=== PATIENT | male | born 1965 | race African-American/Black ===

== ENCOUNTER 2021-11-10 15:25 | Inpatient (IN) | payer OTHER ==
[2021-11-10] MEDS ORDERED: IBUPROFEN 400 MG TABLET (FP) PO PRN (18:02)
[2021-11-10] MEDS ORDERED: METHOCARBAMOL 500 MG TABLET PO PRN (18:02)
[2021-11-10] MEDS ORDERED: MAGNESIUM CITRATE 300 ML BOTTLE PO PRN (18:02)
[2021-11-10] MEDS ORDERED: MENTHOL/PHENOL 1 EACH UD MM PRN (18:02)
[2021-11-10] MEDS ORDERED: NICOTINE 10 MG CARTRIDGE (INHALER) IH PRN (18:02)
[2021-11-10] MEDS ORDERED: MAG HYDROX/AL HYDROX/SIMETH 30 ML UNIT-DOSE CUP PO PRN (18:02)
[2021-11-10] MEDS ORDERED: BISMUTH SUBSALICYLATE 524 MG/30 ML PO PRN (18:02)
[2021-11-10] MEDS ORDERED: MAGNESIUM HYDROX 2400MG/30ML ORAL SUSPENSION 30 ML CUP PO PRN (18:02)
[2021-11-10] MEDS ORDERED: ACETAMINOPHEN 325 MG TABLET (FP) PO PRN ×2 (18:02)
[2021-11-10] MEDS ORDERED: ONDANSETRON *ODT* 4 MG TABLET SL PRN (18:02)
[2021-11-10] MEDS ORDERED: chlordiazePOXIDE HCL 25 MG CAPSULE PO PRN (18:02)
[2021-11-10] MEDS ORDERED: ALBUTEROL SO4 HFA INHALER IH PRN (18:15)
[2021-11-10 20:11] VITALS: BMI 39.1
[2021-11-10] MEDS: hydrOXYzine PAMOATE 25 MG CAPSULE (FP) PO SCH (21:42)
[2021-11-10] MEDS: MELATONIN 5 MG TABLETS PO SCH (21:43)
[2021-11-10] MEDS: THIAMINE HCL 100 MG TABLET (FP) PO SCH (21:44)
[2021-11-10] MEDS: chlordiazePOXIDE HCL 25 MG CAPSULE PO SCH (22:14)
[2021-11-11] MEDS: chlordiazePOXIDE HCL 25 MG CAPSULE PO SCH ×4 (06:27→22:22)
[2021-11-11] MEDS: hydrOXYzine PAMOATE 25 MG CAPSULE (FP) PO SCH ×5 (06:28→22:21)
[2021-11-11 10:20] LABS: HEMATOCRIT 43.8 % (35.4-49); MCH 29.2 pg (25.7-33.7); MCHC 31.9 g/dl (32.0-35.9); MEAN CELL VOLUME 91.4 fl (80-96); MEAN PLT VOLUME 8.7 fl (7.5-11.1); PLATELET COUNT 215 10^3/uL (134-434); RBC 4.79 M/mm3 (4.00-5.60); RDW 13.4 % (11.9-15.9); WHITE BLOOD COUNT 9.1 K/mm3 (4.0-10.0)
[2021-11-11 10:23] LABS: CALCIUM 8.6 mg/dL (8.5-10.1)
[2021-11-11 10:24] LABS: ALBUMIN 3.1 g/dl (3.4-5.0); BLOOD UREA NITROGEN 14.2 mg/dL (7-18)
[2021-11-11 10:27] LABS: CREATININE 1.1 mg/dL (0.55-1.3)
[2021-11-11 10:29] LABS: TOT PROT 6.4 g/dl (6.4-8.2)
[2021-11-11 10:33] LABS: BILIRUBIN,TOTAL 0.9 mg/dL (0.2-1)
[2021-11-11] MEDS: PRENATAL VITAMINS W/ FOLIC ACID TABLET (FP) PO SCH (11:23)
[2021-11-11] MEDS: THIAMINE HCL 100 MG TABLET (FP) PO SCH (22:21)
[2021-11-11] MEDS: MELATONIN 5 MG TABLETS PO SCH (22:21)
[2021-11-12] MEDS: chlordiazePOXIDE HCL 25 MG CAPSULE PO SCH ×2 (07:23→10:51)
[2021-11-12] MEDS: hydrOXYzine PAMOATE 25 MG CAPSULE (FP) PO SCH ×3 (07:23→15:26)
[2021-11-12] MEDS: PRENATAL VITAMINS W/ FOLIC ACID TABLET (FP) PO SCH (10:51)
[2021-11-12 12:59] VITALS: BP 124/90; PULSE 92; TEMP 97.1
[2021-11-13] MEDS ORDERED: chlordiazePOXIDE HCL 10 MG CAPSULE PO PRN
[2021-11-13] MEDS ORDERED: chlordiazePOXIDE HCL 10 MG CAPSULE PO SCH (05:00)
[2021-11-14] MEDS ORDERED: chlordiazePOXIDE HCL 10 MG CAPSULE PO SCH (05:00)
[2021-11-15] MEDS ORDERED: chlordiazePOXIDE HCL 10 MG CAPSULE PO ONE (05:00)
== END 2021-11-12 16:40 | disposition left against medical advice (07) | DRG 770 ==
LOC: YASAS 15:25 → Y3N 21:03
PROVIDERS: ADMIT Allergy & Immunology; ATTEND Allergy & Immunology
PROC: HZ2ZZZZ Detoxification Services for Substance Abuse Treatment (ICD-10-PCS; principal; 2021-11-10)
DX: F10.230 Alcohol dependence with withdrawal, uncomplicated (principal); F14.20 Cocaine dependence, uncomplicated; F17.210 Nicotine dependence, cigarettes, uncomplicated; Z86.11 Personal history of tuberculosis; Z59.00 Homelessness unspecified
CPT/HCPCS: 36415; 71046-TC-FY; 80053; 82947; 85027; 86780; C9803; U0003; U0005